=== PATIENT | female | born 1935 | race Caucasian/White ===

== ENCOUNTER 2018-08-27 13:26 | Inpatient (IN) | payer BC ==
[~2018-08-27] VITALS: Ht 152.4 cm; Wt 55.2 kg
[~2018-08-27 13:26] MED LIST: ADV25050 INH; ALBU8.5H8 INH; ATOR40TA68 PO; BISA10SU75 PR; DET1 PO; DOCU-144 PO; ESTR1TAB23 PO; FLORANEX PO; HYDR-3720 PO; HYDR25TA6 PO; LEVO500T48 PO; MEDR2.5T21 PO; METR500T PO; THP300CCR PO; TRAM50TA2 PO; VERA240T94 PO; ZOLP10TA PO
[2018-08-27] MEDS ORDERED: SOD CHLORIDE 0.9% 1,000 ML IV STA (16:49)
[2018-08-27] MEDS ORDERED: ONDANSETRON 4 MG INJ IV STA (16:49)
[2018-08-27] MEDS ORDERED: morphine 4 MG/ML VIAL IV STA (17:14)
[2018-08-27] MEDS ORDERED: morphine 4 MG/ML VIAL ONE (17:17)
[2018-08-27] MEDS ORDERED: CEFEPIME 2GM/50 ML (PMX) 50 ML IVPB STA (17:36)
[2018-08-27] MEDS ORDERED: SODIUM CHLORIDE 0.9% 1L BAG IV* STA (17:36)
--- NOTE | 2018-08-27 17:43 | ERD ---
ER Documentation Chief Complaint Chief Complaint Complains of vomiting and diarrhea with abdominal pain x 2 days HPI 82-year-old female presenting with complaints of nonbloody and nonbilious vomiting and diarrhea with cramping abdominal pain that started today. She denies any associated fevers or chills. No dysuria. She states that this is happened to her in the past as she does not have a gallbladder and occasionally has vomiting from time to time. ROS All systems reviewed and are negative except as per history of present illness. Medications Home Meds Active Scripts Lactobacillus Acidoph/Bulgaricus* (Floranex*) 1 Tab Chew, 1 TAB PO BID for 14 Days, TAB Prov:SUZETTE,NStephanieANGELESMARYELLEN Martinez 03/06/16 Metronidazole* (Flagyl*) 500 Mg Tablet, 500 MG PO Q8 for 10 Days, TAB Prov:SUZETTE,NStephanieANGELESMARYELLEN Martinez 03/06/16 Levofloxacin* (Levaquin*) 500 Mg Tablet, 500 MG PO DAILY for 10 Days, TAB Prov:SUZETTE,NStephanieANGELESMARYELLEN Martinez 03/06/16 Bisacodyl* (Bisacodyl*) 10 Mg Supp, 10 MG OK DAILY PRN for CONSTIPATION for 30 Days, SUPP Prov:SUZETTE,NStephanieANGELESMARYELLEN Martinez 03/06/16 Docusate Sodium* (Colace*) 100 Mg Capsule, 100 MG PO Q12H for 30 Days, CAP 3 R efills Prov:Radha BRADFORDANGELESMARYELLEN Martinez 03/06/16 Reported Medications Tolterodine Tartrate* (Detrol*) 1 Mg Tablet, 1 MG PO DAILY, #60 TAB 03/03/16 Hydrocodone Bit-Acetaminophen* ([place]*) 7.5-325 Tablet, 1 TAB PO TID PRN for PAIN, TAB 05/15/15 Verapamil Hcl* (Verapamil ER*) 240 Mg Tablet.er, 240 MG PO DAILY, TAB.SA 05/15/15 Tramadol HCl (Tramadol HCl) 50 Mg Tab, 150 MG PO BID PRN for PAIN, TAB 05/15/15 Theophylline Anhydrous* ([place]-24*) 300 Mg Cap.sr.24h, 300 MG PO DAILY, CAP 05/15/15 Albuterol Sulfate* (Proair HFA*) 8.5 Gm Hfa.aer.ad, 2 PUFF INH Q6H PRN for WHEEZING AND SOB, INH 05/15/15 Medroxyprogesterone Acetate* (Medroxyprogesterone Acetate*) 2.5 Mg Tablet, 2.5 MG PO DAILY, TAB 05/15/15 Hydrochlorothiazide* (Hydrochlorothiazide*) 25 Mg Tab, 25 MG PO DAILY, TAB 05/15/15 Estradiol* (Estrace*) 1 Mg Tablet, 0.5 MG PO DAILY, TAB 05/15/15 Atorvastatin* (Atorvastatin*) 40 Mg Tablet, 40 MG PO HS, TAB 05/15/15 Zolpidem Tartrate* (Ambien*) 10 Mg Tablet, 10 MG PO HS PRN for INSOMNIA, TAB 05/15/15 Salmeterol Xinaf/Fluticasone* (Advair*) 250-50 Diskus Inhaler, 1 INH INH BID, INH 05/15/15 Allergies Allergies: Coded Allergies: Sulfa (Sulfonamide Antibiotics) (Verified Allergy, Unknown, 05/15/15) PMhx/Soc History of Surgery: Yes (cholesystectomy, appendectomy, right knee replacement, 3 CS) Anesthesia Reaction: No Hx Neurological Disorder: Yes Hx Respiratory Disorders: Yes (asthma) Hx Cardiac Disorders: Yes (HTN, HIGH CHOLESTEROL) Hx Psychiatric Problems: No Hx Miscellaneous Medical Probl: No Hx Alcohol Use: No Hx Substance Use: No Hx Tobacco Use: No Smoking Status: Never smoker FmHx Family History: No diabetes Physical Exam Vitals Vital Signs Date Temp Pulse Resp B/P (MAP) Pulse Ox O2 O2 Flow FiO2 Time Delivery Rate 08/27/18 97.8 92 20 142/63 97 13:48 (89) Physical Exam Const: No acute distress, well-appearing, nontoxic Head: Atraumatic Eyes: Normal Conjunctiva ENT: Normal External Ears, Nose and Mouth. Dry mucous membranes Neck: Full range of motion. No meningismus. Resp: Clear to auscultation bilaterally Cardio: Regular rate and rhythm, no murmurs Abd: Soft, minimal generalized tenderness, no rebound or guarding, no masses, non distended. Normal bowel sounds Skin: No petechiae or rashes Back: No midline or flank tenderness Ext: No cyanosis, or edema Neur: Awake and alert Psych: Normal Mood and Affect Result Diagram: 08/27/18 1704 08/27/18 1704 Results 24 hrs Laboratory Tests Test 1/28/19 17:04 08/27/18 18:01 08/27/18 19:03 White Blood Count 37.0 10^3/ul Red Blood Count 4.06 10^6/ul Hemoglobin 8.2 g/dl Hematocrit 27.6 % Mean Corpuscular Volume 68.0 fl Mean Corpuscular Hemoglobin 20.2 pg Mean Corpuscular 29.7 g/dl Hemoglobin Concent Red Cell Distribution Width 16.1 % Platelet Count 614 10^3/UL Mean Platelet Volume 9.3 fl Immature Granulocytes % 0.900 % Segmented Neutrophils % (Manual) 92 % Band Neutrophils % (Manual) 5 % Lymphocytes % (Manual) 1 % Monocytes % (Manual) 1 % Basophils % (Manual) 1 % Nucleated Red Blood Cells % 0.1 /100WBC Immature Granulocytes # 0.320 10^3/ul Neutrophils # (Manual) 34.7 10^3/ul Band Neutrophils # 1.8 10^3/ul Lymphocytes (Manual) 0.3 10^3/ul Monocytes # (Manual) 0.3 10^3/ul Basophils # (Manual) 0.3 10^3/ul Pathologist Review (Hematology) Y Platelet Estimate NORMAL Giant Platelets 1 % Polychromasia 1+ Poikilocytosis 1+ Anisocytosis 1+ Microcytosis 1+ Ovalocytes 1+ Sodium Level 140 mmol/L Potassium Level 4.1 mmol/L Chloride Level 99 mmol/L Carbon Dioxide Level 23 mmol/L Anion Gap 18 Blood Urea Nitrogen 35 mg/dl Creatinine 1.29 mg/dl Est Glomerular Filtrat Rate mL/min mL/min Glucose Level 266 mg/dl Calcium Level 10.6 mg/dl Total Bilirubin 0.3 mg/dl Direct Bilirubin 0.00 mg/dl Indirect Bilirubin 0.3 mg/dl Aspartate Amino Transf (AST/SGOT) 36 IU/L Alanine 14 IU/L Aminotransferase (ALT/SGPT) Alkaline Phosphatase 115 IU/L Troponin I 0.041 ng/ml Total Protein 7.5 g/dl Albumin 4.2 g/dl Globulin 3.30 g/dl Albumin/Globulin Ratio 1.27 Lipase 47 U/L POC Venous Lactate 3.7 mmol/L Prothrombin Time 13.1 Sec Prothrombin Time Ratio 1.0 INR International Normalized Ratio 0.98 Activated Partial Thromboplast 23.5 Sec Time Current Medications Medications Dose Sig/Olivia Start Time Status Last (Trade) Ordered Route PRN Stop Time Admin Dose Reason Admin Sodium 1,000 ml @ Q1H STAT 08/27/18 DC 08/27/18 Chloride 1,000 mls/hr IV 16:49 17:08 08/27/18 17:48 Ondansetron 4 mg ONCE STAT 08/27/18 DC 08/27/18 HCl (Zofran IV 16:49 17:08 Inj) 08/27/18 16:50 Morphine 4 mg ONCE STAT 08/27/18 DC 08/27/18 Sulfate IV 17:14 17:19 (morphine) 08/27/18 17:16 Morphine 4 mg STK-MED 08/27/18 DC Sulfate ONCE .ROUTE 17:17 (morphine) 08/27/18 17:18 Sodium 1,860 ml BOLUS OVER 2 08/27/18 DC 08/27/18 Chloride HOURS STAT 17:36 17:45 (NS) IV* 08/27/18 17:37 Cefepime HCl 50 ml @ ONCE STAT 08/27/18 DC 08/27/18 100 mls/hr IVPB 17:36 18:13 08/27/18 18:05 Potassium 1,000 ml @ [id number] IV 08/27/18 08/27/18 Chloride/Dext 80 mls/hr 19:17 22:08 edith/ Sod Cl 08/28/18 07:46 Procedures/MDM EMERGENT LABS AND DIAGNOSTIC STUDIES: Lab Results above were reviewed and interpreted by me. CBC: Significant leukocytosis and thrombocytosis with anemia, concerning for infection CMP: Elevated BUN and creatinine, likely prerenal azotemia. Hyperglycemic without evidence of acidosis. No evidence of electrolyte abnormality, hypoglycemia, liver failure, or biliary obstruction Lipase: no evidence of pancreatitis Troponin within normal limits, not indicative of cardiac ischemia Lactate elevated, consistent with hypoperfusion and severe sepsis UA: no evidence of infection 12-lead EKG was interpreted by Negar Leonard MD: Normal Sinus Rhythm with ventricular rate of 92 beats per minute Normal axis Normal intervals Minimal inferior ST depressions Abnormal EKG, no STEMI. Radiology Results as interpreted by Radiology below were reviewed by Norma Leonard MD: Chest x-ray: No acute abnormalities CT abdomen and pelvis shows evidence of ileus, no other acute abnormalities Initial Nursing notes reviewed. Previous Medical Records requested via the Electronic Health Record. EMERGENCY DEPARTMENT COURSE / MEDICAL DECISION MAKING: Patient is presenting with nausea, vomiting, and diarrhea for 1 day. She was noted to be hypoxic to 90% at bedside. She was placed on oxygen. Chest x-ray did not show any significant abnormalities such as many consolidations. Her white blood cell count was noted to be 37. Given concern for sepsis, sepsis workup was initiated. There is no clear source of bacterial infection on workup. I have a lower suspicion for bacterial gastroenteritis, but given her leukocytosis, I cannot rule this out. There is no evidence of pneumonia or UTI. No evidence of acute surgical abdomen at this time. Patient's lactic acidosis has improved after IV fluids and broad-spectrum antibiotics. Patient will be admitted for IV hydration and further workup as deemed appropriate by inpatient team Accepting Care Team: Current data and ongoing care discussed. Time: Time of admission Primary Provider: Dr. Kaplan Outstanding Data: Cultures Critical Care Time: 35 minutes Treatments/Evaluations: Close monitoring and treatment of unstable vital signs, cardiorespiratory, and neurologic status, while maintaining tight balance of fluid, respiratory, and cardiac interventions. This time includes discussing the case with the patient and the patients family. This time does not include all procedures stated elsewhere in this record. This time also includes reviewing old records, labs and radiological studies. This time includes examining and re- examining the patient. Additionally, this time also includes arranging care with admitting and consulting physicians. Departure Diagnosis: Primary Impression: Severe sepsis Additional Impressions: Acute vomiting Vomiting and diarrhea Acute renal insufficiency Leukocytosis Leukocytosis type: unspecified Qualified Codes: D72.829 - Elevated white blood cell count, unspecified Condition: ADALGISA Shah MD Aug 27, 2018 17:43
[2018-08-27] MEDS ORDERED: D5W-0.45 NACL + KCL 20 MEQ 1,000 ML IV SCH (19:17)
[2018-08-27] MEDS ORDERED: ACETAMINOPHEN 325 MG TAB PO PRN (19:30)
[2018-08-27] MEDS ORDERED: ONDANSETRON 4 MG INJ IV PRN (19:30)
[2018-08-27 20:00] VITALS: BP 127/61; PULSE 87; RESP 18
[2018-08-27 21:42] VITALS: Ht 152.4 cm; Wt 55.2 kg
[2018-08-28] MEDS ORDERED: ONDANSETRON 4 MG INJ IV PRN
[2018-08-28] MEDS ORDERED: ACETAMINOPHEN 325 MG TAB PO PRN
[2018-08-28] MEDS: morphine 4 MG/ML VIAL IV PRN ×5 (00:03→20:57)
--- NOTE | 2018-08-28 00:48 | QN ---
Documentation Comment H&P dict a/p 1. gastroenteritis, cont abx adn ivf 2. marked leukocytosis, presumed to be related to cause of vomiting 3. anemia, liekly Fe deficinet, r/o active bleed, start protonix, check iron/b12/folate ERIC FIGUEROA MD Aug 28, 2018 00:48
[2018-08-28] MEDS: SOD CHLORIDE 0.9% 1,000 ML IV SCH ×3 (01:28→21:00)
[2018-08-28] MEDS: CEFTRIAXONE 1 GM/50 ML (PMX) 50 ML IVPB SCH (01:31)
[2018-08-28 02:00] VITALS: BP 137/60; PULSE 87; RESP 18
--- NOTE | 2018-08-28 02:06 | HP ---
DATE OF ADMISSION: 08/27/2018 CHIEF COMPLAINT: Vomiting. HISTORY OF PRESENTING ILLNESS: The patient presents to the emergency room at [facility] h a 1-day history of vomiting with some associated diarrhea. The patient denies any associated abdom inal pain. States that her vomiting has food and bilious material. Denies any coffee-ground. Denie s melena. Denies fevers or chills. States that she has had previous episodes similar to this. PAST MEDICAL HISTORY: Significant for asthma, hypertension, hyperlipidemia. MEDICATIONS OUTPATIENT: Include: 1. Albuterol as needed. 2. Lipitor. 3. Verapamil. 4. [place]. 5. Tramadol. 6. Ambien. 7. Hydrochlorothiazide. 8. Advair. 9. Colace. 10. Dulcolax. 11. Detrol. ALLERGIES: SULFA. SOCIAL HISTORY: The patient lives at home in [place]. Independent of activities of daily livin g. Continues to drive. Does not use a cane or walker. Denies tobacco, alcohol or illicit drug use. FAMILY HISTORY: Noncontributory. REVIEW OF SYSTEMS: Five systems reviewed and found not to be revealing. PHYSICAL EXAMINATION: VITAL SIGNS: Blood pressure 118/51, pulse rate 82, respirations 20, temperature is 98.9. GENERAL: Pleasant woman in no acute distress, alert and oriented x3. HEENT: Normocephalic, atraumatic without evident scleral icterus, perioral cyanosis. Mucous membran es are moist. NECK: Soft and supple without masses. No evidence of jugular venous distention or carotid bruits. CHEST: Clear to auscultation and percussion bilaterally. HEART: Regular rate and rhythm. S1, systolic murmur, S2, no added sounds. ABDOMEN: Soft, nontender, nondistended without palpable hepatosplenomegaly. EXTREMITIES: Without clubbing, cyanosis or edema. SKIN: Without rashes. NEUROLOGIC: Grossly intact. LABORATORY STUDIES: Reveal hemoglobin of 8.2 g/dL, white count of 37,000, platelets of 614,000. INR 0.98. Sodium 140, potassium 4.1, chloride 99, bicarbonate 23, BUN 35, creatinine 1.3, glucose 266. Liver function tests are unremarkable. UA is negative for signs of infection. ASSESSMENT AND PLAN: 1. Gastrointestinal. The patient with likely gastroenteritis. We will continue to manage symptomat ically. Give IV fluids. We will give antibiotics in light of markedly elevated white blood cell cou nt. Send stool for culture, ova and parasites, WBC and Clostridium difficile. 2. Leukocytosis. Continue to monitor. 3. Anemia with microcytic indices. Check indices. Check reticulocyte count. Rule out gastrointest inal bleeding. 4. Prophylaxis with sequential compression devices. Dictated By: ERIC FIGUEROA MD RER/NTS Conf#: [id number] DID#: [id number]
[2018-08-28] MEDS: PANTOPRAZOLE (EC) 40 MG TAB PO SCH ×2 (05:08→17:50)
[2018-08-28] MEDS: metroNIDAZOLE 500 MG/NS (PMX) 100 ML IVPB SCH ×2 (05:08→15:30)
--- NOTE | 2018-08-28 07:22 | NUR ---
RN Notes Patient admitted from emergency department due to severe sepsis. Per patient she had been having vomiting along with diarrhea for a couple days. Patient is alert and oriented to person, place, time and situation. Able to verbally communicate. Patient on contact isolation precautions, pending rule out c. diff. Patient has not had a bowel movement since being admitted on the floor. saw patient shortly after admission and input new orders for occult blood and other examinations. Informed Dr. Tan regarding critical labs this morning, carried out orders. Endorsed accordingly to oncoming RN.
[2018-08-28 08:00] VITALS: BP 136/67; PULSE 76; RESP 17
[2018-08-28] MEDS: LACTOBACILLUS RHAMNOSUS CAP PO SCH ×2 (09:00→20:49)
[2018-08-28] MEDS: FLUTICASONE/VILANTEROL 100-25 INH SCH (09:00)
[2018-08-28] MEDS: VERAPAMIL (SR) 240 MG TAB PO SCH (09:00)
--- NOTE | 2018-08-28 11:35 | NUR ---
1st unit of blood started. No immediate s/s of transfusion reaction. Will continue to monitor.
--- NOTE | 2018-08-28 13:58 | PN ---
DATE: 08/28/2018 SUBJECTIVE: The patient is feeling better. No further vomiting or diarrhea. She only complains of mild nausea. No abdominal pain. OBJECTIVE: VITAL SIGNS: Stable. She is afebrile. NECK: Supple. LUNGS: Clear to auscultation bilaterally. CARDIAC: Regular rate and rhythm. No murmurs, rubs or gallops. ABDOMEN: Soft, nontender, nondistended. Normoactive bowel sounds. EXTREMITIES: No clubbing, cyanosis, or edema. NEUROLOGICAL: Nonfocal. ASSESSMENT AND PLAN: 1. An 82-year-old female with nausea, vomiting and diarrhea, most likely due to gastroenteritis. 2. Leukemoid reaction, improving. 3. Profound anemia. The patient is iron deficient. Rule out gastrointestinal bleed. 4. Hypertension, stable. 5. Hyperlipidemia. 6. History of asthma, compensated. PLAN: 1. Transfuse 2 units of packed RBC. 2. Repeat CBC. 3. Start clear liquid diet. 4. Gastrointestinal consultation was requested. Dictated By: TONY RILEY/SOFIA Conf#: [id number] DID#: [id number] CC: ERIC FIGUEROA MD;*End*
[2018-08-28 14:00] VITALS: BP 174/70; PULSE 81; RESP 19
--- NOTE | 2018-08-28 14:45 | NUR ---
End of transfusion, no s/s of transfusion reaction throughout. Will give scheduled flagyl then give second bag
--- NOTE | 2018-08-28 14:46 | CONS ---
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 Gonsalez CC: JAVAN GONSALEZ ; Consultation Date/Type/Reason Admit Date/Time Aug 27, 2018 at 20:15 Date of Consultation: Aug 28, 2018 Type of Consult GI Reason for Consultation Severe VICK Date/Time of Note DATE: 08/28/18 TIME: 14:25 Hx of Present Illness This is a 82-year-old female with past medical history of hypertension, dyslipidemia, asthma who presented to the hospital with complaints of persistent nausea/vomiting and loose stool. 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 LFTs are within normal limits. Hemoglobin and WBC on admission were hgb-8.2 wbc-37.0. She was started on metronidazole and ceftriaxone. Labs were redrawn today WBCs 22.2, hemoglobin 6.3, hematocrit 21.6, MCV 67.7, MCH 19.7 iron studies show, iron sat uration is 3, total iron is 12, and TIBC is 375. At time evaluation patient states she feels a little bit better no further episodes of loose stool. She denies further episodes of emesis, she does complain of some nausea with current blood transfusion. She denies hematochezia, hematemesis or melena. Discussed recommendations for EGD/colonoscopy patient states she "is 82 and made at this long" she does not want to proceed with either procedure. He notes she previously had an EGD in 2015 which showed a removal of food bezoar, severe distal esophagitis, and probably a mild esophageal stricture. Review of Systems: A 12 system, review was conducted and is negative except as noted in the HPI or here. Past Medical History Home Meds Active Scripts Lactobacillus Acidoph/Bulgaricus* (Floranex*) 1 Tab Chew, 1 TAB PO BID for 14 Days, TAB Prov:CELIA BRADFORD 03/06/16 Metronidazole* (Flagyl*) 500 Mg Tablet, 500 MG PO Q8 for 10 Days, TAB Prov:CELIA BRADFORD 03/06/16 Levofloxacin* (Levaquin*) 500 Mg Tablet, 500 MG PO DAILY for 10 Days, TAB Prov:CELIA BRADFORD 03/06/16 Bisacodyl* (Bisacodyl*) 10 Mg Supp, 10 MG PA DAILY PRN for CONSTIPATION for 30 Days, SUPP Prov:CELIA BRADFORD 03/06/16 Docusate Sodium* (Colace*) 100 Mg Capsule, 100 MG PO Q12H for 30 Days, CAP 3 Refills Prov:CELIA BRADFORD 03/06/16 Reported Medications Tolterodine Tartrate* (Detrol*) 1 Mg Tablet, 1 MG PO DAILY, #60 TAB 03/03/16 Hydrocodone Bit-Acetaminophen* (Wheeler*) 7.5-325 Tablet, 1 TAB PO TID PRN for PAIN, TAB 05/15/15 Verapamil Hcl* (Verapamil ER*) 240 Mg Tablet.er, 240 MG PO DAILY, TAB.SA 05/15/15 Tramadol HCl (Tramadol HCl) 50 Mg Tab, 150 MG PO BID PRN for PAIN, TAB 05/15/15 Theophylline Anhydrous* (Ronal-24*) 300 Mg Cap.sr.24h, 300 MG PO DAILY, CAP 05/15/15 Albuterol Sulfate* (Proair HFA*) 8.5 Gm Hfa.aer.ad, 2 PUFF INH Q6H PRN for WHEEZING AND SOB, INH 05/15/15 Medroxyprogesterone Acetate* (Medroxyprogesterone Acetate*) 2.5 Mg Tablet, 2.5 MG PO DAILY, TAB 05/15/15 Hydrochlorothiazide* (Hydrochlorothiazide*) 25 Mg Tab, 25 MG PO DAILY, TAB 05/15/15 Estradiol* (Estrace*) 1 Mg Tablet, 0.5 MG PO DAILY, TAB 05/15/15 Atorvastatin* (Atorvastatin*) 40 Mg Tablet, 40 MG PO HS, TAB 05/15/15 Zolpidem Tartrate* (Ambien*) 10 Mg Tablet, 10 MG PO HS PRN for INSOMNIA, TAB 05/15/15 Salmeterol Xinaf/Fluticasone* (Advair*) 250-50 Diskus Inhaler, 1 INH INH BID, INH 05/15/15 Medications Current Medications Morphine Sulfate (morphine) 2 mg Q2H PRN IV SEVERE PAIN LEVEL 7-10 Last administered on 08/28/18at 12:49; Admin Dose 2 MG; Start 08/28/18 at 00:00 Acetaminophen (Tylenol Tab) 650 mg Q4H PRN PO MILD PAIN(1-3)OR ELEVATED TEMP; Start 08/28/18 at 00:00 Ondansetron HCl (Zofran Inj) 4 mg Q4H PRN IV NAUSEA AND/OR VOMITING; Start 08/28/18 at 00:00 Atorvastatin Calcium (Lipitor) 40 mg HS PO ; Start 08/28/18 at 21:00 Verapamil HCl (Isoptin Sr) 240 mg DAILY PO ; Start 08/28/18 at 09:00 Lactobacillus Acidophilus/ Rhamnosus (Culturelle) 1 cap BID PO ; Start 08/28/18 at 09:00 Fluticasone/ Vilanterol (Breo Ellipta 100-25 Mcg Inh) 1 inh DAILY INH Last administered on 08/28/18at 09:00; Admin Dose 1 INH; Start 08/28/18 at 09:00 Ceftriaxone Sodium 50 ml @ 100 mls/hr Q24H IVPB Last administered on 08/28/18at 01:31; Admin Dose 100 MLS/HR; Start 08/28/18 at 01:00 Metronidazole 100 ml @ 100 mls/hr Q8 IVPB Last administered on 08/28/18at 05:08; Admin Dose 100 MLS/HR; Start 08/28/18 at 06:00 Sodium Chloride 1,000 ml @ 100 mls/hr Q10H IV Last administered on 08/28/18at 01:28; Admin Dose 100 MLS/HR; Start 08/28/18 at 01:00 Pantoprazole (Protonix Tab) 40 mg BID@06,18 PO Last administered on 08/28/18at 05:08; Admin Dose 40 MG; Start 08/28/18 at 06:00 Allergies: Coded Allergies: Sulfa (Sulfonamide Antibiotics) (Verified Allergy, Unknown, 05/15/15) Social History Smoking Status: Never smoker Exam/Review of Systems Exam Vitals PHYSICAL EXAMINATION: GENERAL:Pale, alert & oriented x 3, in no acute distress SKIN: No lesions EYES: Pupils equal reactive to light EARS/NOSE AND THROAT: Ears normal, nose normal, oropharynx normal NECK: Supple, no masses CHEST: Inspection within normal limits. CARDIOVASCULAR: Heart: Regular rate and rhythm RESPIRATORY: Lungs clear to auscultation GASTROINTESTINAL AND LIVER: Abdomen: Soft, non tenderness, no guarding, no rebound tenderness, normoactive bowel sounds. Rectal: Deferred. GENITOURINARY: Female genitalia within normal limits. EXTREMITIES: No cyanosis, clubbing or edema. Vital Signs Date Temp Pulse Resp B/P (MAP) Pulse Ox O2 O2 Flow FiO2 Time Delivery Rate 08/28/18 98.0 76 17 136/67 97 Room Air 08:00 (90) Intake and Output 08/27/18 08/27/18 08/28/18 1515:00 23:00 07:00 IntakeIntake Total 710 ml BalanceBalance 710 ml Results Result Diagram: 08/28/18 0549 08/28/18 0549 Results 24hrs Laboratory Tests Test 08/27/18 17:04 08/27/18 18:01 08/27/18 19:03 08/27/18 20:18 White Blood Count 37.0 #H Red Blood Count 4.06 L Hemoglobin 8.2 L Hematocrit 27.6 L Mean Corpuscular 68.0 L Volume Mean Corpuscular 20.2 #L Hemoglobin Mean Corpuscular 29.7 L Hemoglobin Concent Red Cell 16.1 H Distribution Width Platelet Count 614 H Mean Platelet Volume 9.3 Immature 0.900 H Granulocytes % Segmented 92 H Neutrophils % (Manual) Band Neutrophils % 5 H (Manual) Lymphocytes % 1 L (Manual) Monocytes % (Manual) 1 Basophils % (Manual) 1 Nucleated Red Blood 0.1 H Cells % Immature 0.320 H Granulocytes # Neutrophils # 34.7 H (Manual) Band Neutrophils # 1.8 H Lymphocytes (Manual) 0.3 L Monocytes # (Manual) 0.3 Basophils # (Manual) 0.3 H Pathologist Y Review (Hematology) Platelet Estimate NORMAL Giant Platelets 1 H Polychromasia 1+ Poikilocytosis 1+ Anisocytosis 1+ Microcytosis 1+ Ovalocytes 1+ Sodium Level 140 Potassium Level 4.1 Chloride Level 99 Carbon Dioxide Level 23 Anion Gap 18 H Blood Urea Nitrogen 35 H Creatinine 1.29 H Est Glomerular Filtrat Rate mL/min Glucose Level 266 H Calcium Level 10.6 H Total Bilirubin 0.3 Direct Bilirubin 0.00 Indirect Bilirubin 0.3 Aspartate Amino 36 Transf (AST/SGOT) Alanine 14 Aminotransferase (AL T/SGPT) Alkaline Phosphatase 115 Troponin I 0.041 Total Protein 7.5 Albumin 4.2 Globulin 3.30 H Albumin/Globulin 1.27 Ratio Lipase 47 POC Venous Lactate 3.7 *H 1.8 Prothrombin Time 13.1 Prothrombin Time 1.0 Ratio INR International 0.98 Normalized Ratio Activated 23.5 Partial Thromboplast Time Test 08/27/18 20:39 08/27/18 22:01 08/28/18 05:49 Urine Color YELLOW Urine Clarity CLEAR Urine pH 5.0 Urine Specific 1.015 [place] Urine Ketones NEGATIVE Urine Nitrite NEGATIVE Urine Bilirubin NEGATIVE Urine Urobilinogen NEGATIVE Urine Leukocyte NEGATIVE Esterase Urine Hemoglobin NEGATIVE Urine Glucose NEGATIVE Urine Total Protein NEGATIVE Lactic Acid Level 1.9 White Blood Count 22.2 #H Red Blood Count 3.19 #L Hemoglobin 6.3 #*L Hematocrit 21.6 #L Mean Corpuscular 67.7 L Volume Mean Corpuscular 19.7 L Hemoglobin Mean Corpuscular 29.2 L Hemoglobin Concent Red Cell 16.3 H Distribution Width Platelet Count 490 #H Mean Platelet Volume 9.9 Immature 0.600 H Granulocytes % Neutrophils % Segmented 91 H Neutrophils % (Manual) Band Neutrophils % 3 (Manual) Lymphocytes % Lymphocytes % 4 L (Manual) Monocytes % Monocytes % (Manual) 1 Eosinophils % Basophils % Basophils % (Manual) 1 Nucleated Red Blood 0.0 Cells % Immature 0.140 H Granulocytes # Neutrophils # Neutrophils # 20.3 H (Manual) Band Neutrophils # 0.6 Lymphocytes (Manual) 0.8 Lymphocytes # Monocytes # Monocytes # (Manual) 0.2 L Eosinophils # Basophils # Basophils # (Manual) 0.2 H Nucleated Red Blood Cells # Platelet Estimate INCREASED Polychromasia 3+ Hypochromasia 3+ Poikilocytosis 1+ Anisocytosis 2+ Microcytosis 2+ Ovalocytes 2+ Absolute 0.049 Reticulocyte Count Percent Reticulocyte 1.6 H Count Sodium Level 143 Potassium Level 3.9 Chloride Level 107 Carbon Dioxide Level 23 Anion Gap 13 Blood Urea Nitrogen 27 H Creatinine 0.96 Est Glomerular Filtrat Rate mL/min Glucose Level 139 # Calcium Level 9.1 Iron Level 12 L Total Iron Binding 375 Capacity Percent Iron 3 L Saturation Total Bilirubin 0.1 L Direct Bilirubin 0.00 Indirect Bilirubin 0.1 Aspartate Amino 22 Transf (AST/SGOT) Alanine 21 Aminotransferase (AL T/SGPT) Alkaline Phosphatase 77 Total Protein 6.2 # Albumin 3.2 #L Globulin 3.00 Albumin/Globulin 1.06 Ratio Vitamin B12 Level 451 Folate 10.6 Medications Medication Current Medications Morphine Sulfate (morphine) 2 mg Q2H PRN IV SEVERE PAIN LEVEL 7-10 Last administered on 08/28/18at 12:49; Admin Dose 2 MG; Start 08/28/18 at 00:00 Acetaminophen (Tylenol Tab) 650 mg Q4H PRN PO MILD PAIN(1-3)OR ELEVATED TEMP; Start 08/28/18 at 00:00 Ondansetron HCl (Zofran Inj) 4 mg Q4H PRN IV NAUSEA AND/OR VOMITING; Start 08/28/18 at 00:00 Atorvastatin Calcium (Lipitor) 40 mg HS PO ; Start 08/28/18 at 21:00 Verapamil HCl (Isoptin Sr) 240 mg DAILY PO ; Start 08/28/18 at 09:00 Lactobacillus Acidophilus/ Rhamnosus (Culturelle) 1 cap BID PO ; Start 08/28/18 at 09:00 Fluticasone/ Vilanterol (Breo Ellipta 100-25 Mcg Inh) 1 inh DAILY INH Last administered on 08/28/18at 09:00; Admin Dose 1 INH; Start 08/28/18 at 09:00 Ceftriaxone Sodium 50 ml @ 100 mls/hr Q24H IVPB Last administered on 08/28/18at 01:31; Admin Dose 100 MLS/HR; Start 08/28/18 at 01:00 Metronidazole 100 ml @ 100 mls/hr Q8 IVPB Last administered on 08/28/18at 05:08; Admin Dose 100 MLS/HR; Start 08/28/18 at 06:00 Sodium Chloride 1,000 ml @ 100 mls/hr Q10H IV Last administered on 08/28/18at 01:28; Admin Dose 100 MLS/HR; Start 08/28/18 at 01:00 Pantoprazole (Protonix Tab) 40 mg BID@06,18 PO Last administered on 08/28/18at 05:08; Admin Dose 40 MG; Start 08/28/18 at 06:00 LAINEY DELANEY Aug 28, 2018 14:35
--- NOTE | 2018-08-28 17:50 | NUR ---
Pt asking to wait to start next bag of blood. Will endorse to next shift
[2018-08-28 19:29] VITALS: BP 135/65; PULSE 71; RESP 18
[2018-08-28] MEDS ORDERED: ZOLPIDEM 5 MG TAB PO PRN (20:30)
[2018-08-28] MEDS ORDERED: ATORVASTATIN 40 MG TAB PO SCH (21:00)
--- NOTE | 2018-08-28 21:45 | NUR ---
Patient room alert and oriented x4. Educated provided at this time regarding the purpose of the 1 unit of PRBC blood transfusion, 2 RN witness identifier, and vital signs and BT complications monitoring. Patient verbalized understanding. Ami RN at bedside verifying correct patient and type/amount of PRBCs to be infused at this time. VS stable with no signs of distress. Will continue to monitor throughout transfusion for any adverse effects. Safety precautions and hourly rounding currently in place.
[2018-08-29] MEDS: metroNIDAZOLE 500 MG/NS (PMX) 100 ML IVPB SCH ×2 (00:57→05:53)
[2018-08-29] MEDS: morphine 4 MG/ML VIAL IV PRN ×4 (00:58→12:05)
[2018-08-29] MEDS: SOD CHLORIDE 0.9% 1,000 ML IV SCH (01:04)
--- NOTE | 2018-08-29 01:30 | NUR ---
Blood transfusion completed at 0025 with VS stable and no signs of distress noted at the end and 1 hour post-transfusion. Patient denies any complications indicating signs of a blood transfusion reaction. Safety precautions and hourly rounding currently in place.
[2018-08-29 02:00] VITALS: BP 196/62; PULSE 68; RESP 18
[2018-08-29] MEDS: CEFTRIAXONE 1 GM/50 ML (PMX) 50 ML IVPB SCH (02:02)
[2018-08-29 02:15] VITALS: BP 153/60
[2018-08-29] MEDS: PANTOPRAZOLE (EC) 40 MG TAB PO SCH (05:53)
--- NOTE | 2018-08-29 07:17 | NUR ---
Patient in room asleep with no signs of distress. BP elevated this shift; VS otherwise stable. 1 unit of PRBCs infused this shift with no complications. Patient complained of pain; morphine administered per MD order. No other changes otherwise noted. Unable to obtain stool culture this shift; will endorse to oncoming nurse. All needs met and medications administered per MD order. Patient turned every 2 hours and OOB this shift. Safety precautions and hourly rounding currently in place until change of shift.
[2018-08-29 07:20] VITALS: BP 186/58; PULSE 67; RESP 18
[2018-08-29] MEDS: VERAPAMIL (SR) 240 MG TAB PO SCH (08:43)
[2018-08-29] MEDS: FLUTICASONE/VILANTEROL 100-25 INH SCH (08:43)
[2018-08-29] MEDS: LACTOBACILLUS RHAMNOSUS CAP PO SCH (08:43)
[2018-08-29] MEDS ORDERED: LEVO500T48 PO (09:12)
[2018-08-29] MEDS ORDERED: METR500T PO (09:12)
--- NOTE | 2018-08-29 09:13 | PDOCDIS ---
Discharge Instructions CONDITION [id number] Patient Condition: [id number] Good HOME CARE INSTRUCTIONS: [id number] Diet Instructions: [id number] FOLLOW UP/APPOINTMENTS Follow-up Plan pcp [address] Baez 1 week TONY WILLIAMSON MD Aug 29, 2018 09:13
--- NOTE | 2018-08-29 09:50 | DS ---
DATE OF ADMISSION: 08/27/2018 DATE OF DISCHARGE: 08/29/2018 DISCHARGE DIAGNOSES: An 82-year-old female with; 1. Nausea, vomiting and diarrhea, resolved. 2. Infectious gastroenteritis. 3. Iron deficiency anemia with no clear evidence of gastrointestinal bleed. 4. Leukocytosis, improving. 5. Hypertension. 6. Persistent common bile duct and intrahepatic duct dilatation. 7. Hyperlipidemia. 8. History of asthma. HOSPITAL COURSE: An 82-year-old female with multiple medical problems, presented to emergency room w ith complaint of nausea, vomiting and diarrhea. Her initial white blood cell count was as high as 30 ,000. The patient was started on empiric antibiotics. Her symptoms resolved completely. Her hemogl obin dropped to 6.3. There was no obvious evidence of gastrointestinal bleed. However, the patient was found to be iron deficient. She was seen in consultation by the gastroenterology. The patient r eceived 2 units of packed RBC. Her hemoglobin remained stable and it was 9.7 on the day of discharge . PLAN: At this point, the patient is hemodynamically stable for discharge. She will follow up with [facility] physician and gastroenterology as outpatient. I prescribed 5 days of Levaquin and Flagyl . The patient will resume her previous oral medications. Dictated By: TONY RILEY/SOFIA Conf#: [id number] DID#: [id number] CC: Dr. REAVES; ERIC CANO MD;*[facility]*
[2018-08-29 10:09] VITALS: BP 157/66
[2018-08-29 13:00] VITALS: BP 157/77; PULSE 66; RESP 18
[2018-08-29 14:09] VITALS: PULSE 66
--- NOTE | 2018-08-29 14:09 | NUR ---
Pt discharge teaching done. Pt instructed to follow up with primary care doctor and Dr. romero in one week. Pt verbalized understanding. All belongings accounted for. Pt denies any pain. No signs of discomfort or distress. No SOB. Pt currently sitting in bed waiting for her granddaughter to arrive to pick her up. Bed alarm on, call light within reach. Will continue to monitor. Addendum: 08/29/18 at 1431 by SOLANGE JIMENEZ RN Pt off unit by wheelchair with granddaughter at side. No signs of discomfort or distress. No SOB.
== END 2018-08-29 14:30 | disposition home health service (06) | DRG 392 ==
LOC: E/R 13:26 → PP2 19:18 → OBSVTOIN 20:15
PROVIDERS: ADMIT Legal Medicine; ATTEND Legal Medicine
PROC: 30233N1 Transfusion of Nonautologous Red Blood Cells into Peripheral Vein, Percutaneous Approach (ICD-10-PCS; principal; 2018-08-28)
DX: A09 Infectious gastroenteritis and colitis, unspecified (principal); D50.9 Iron deficiency anemia, unspecified; I10 Essential (primary) hypertension; D72.829 Elevated white blood cell count, unspecified; K83.8 Other specified diseases of biliary tract
CPT/HCPCS: 36415; 36430; 71045; 74176; 80053; 81003; 82607; 82746; 83540; 83605; 83690; 84484; 85025; 85045; 85610; 85730; 86850; 86900; 86901; 86920; 87040; 87086; 93005; 96374; 96375; G0378; J0692; J0696; J2270; J2405; J3480; J7030; P9016